=== PATIENT | male | born 1930 | race Caucasian/White ===

== ENCOUNTER → 2018-08-05 | Outpatient (CLI) | payer MEDICARE, BC ==
--- NOTE | 2018-08-05 11:50 | RAD ---
Left neck ultrasound, 08/05/2018: HISTORY: Neck swelling, lump The soft tissues of the left neck were carefully scanned. A couple of small normal-sized lymph nodes are seen. No mass, enlarged lymph nodes or abnormal fluid collection is evident. Clinical follow-up is suggested and if clinical concern persists, CT scanning may be useful for further evaluation Electronically signed by: Walt Denney MD (08/05/2018 11:47 AM) [facility]
== END | disposition home or self-care (01) ==
LOC: US 09:28
PROVIDERS: ATTEND Family Medicine
DX: R22.1 Localized swelling, mass and lump, neck (principal)
CPT/HCPCS: 76536

== ENCOUNTER → 2018-08-30 | Outpatient (CLI) | payer MEDICARE, BC ==
--- NOTE | 2018-08-30 09:33 | RAD ---
PQRS Compliance statement: One or more of the following individualized dose reduction techniques were utilized for this examination: 1. Automated exposure control. 2. Adjustment of the mA and/or kV according to patient size. 3. Use of iterative reconstruction technique. Indication:Left-sided neck mass and swelling. Severely dry throat for 3 years. TECHNIQUE: CT neck soft tissue without IV contrast with multiplanar reformats. COMPARISON:None FINDINGS: Limited exam due to lack of IV contrast. Noncontrast appearance through the orbits and brain are within normal limits. The nasopharynx, oropharynx and hypopharynx are within normal limits. The noncontrast appearance of the bilateral submandibular glands, parotid glands and thyroid is within normal limits. No enlarged deep cervical adenopathy. Moderate atherosclerotic plaque in the right carotid bulb. Surgical clips are seen in the left superficial neck soft tissue and carotid space. There is no abnormal soft tissue mass seen in the left neck. Mild emphysema in the visualized lung apices. Visualized paranasal sinuses and mastoid air cells are clear. No suspicious bony lesion. 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 Most likely a hemangioma in T1 vertebral body. IMPRESSION: Limited exam due to lack of IV contrast. No apparent neck mass seen. Postsurgical changes in the left carotid space and superficial neck soft tissue. Electronically signed by: Cuba Shen DO (08/30/2018 9:30 AM) [facility]
== END | disposition home or self-care (01) ==
LOC: CT 08:46
PROVIDERS: ATTEND Family Medicine
DX: I65.21 Occlusion and stenosis of right carotid artery (principal); M50.30 Other cervical disc degeneration, unspecified cervical region; J43.9 Emphysema, unspecified; I10 Essential (primary) hypertension; Z88.0 Allergy status to penicillin
CPT/HCPCS: 70490

== ENCOUNTER → 2019-03-16 | Outpatient (CLI) | payer MEDICARE, BC ==
--- NOTE | 2019-03-16 09:43 | RAD ---
EXAM: CT HEAD WITHOUT CONTRAST. HISTORY: Left vision loss. TECHNIQUE: Computed tomography of the head was performed without intravenous contrast. One or more of the following individualized dose reduction techniques were utilized for this examination: 1. Automated exposure control. 2. Adjustment of the mA and/or kV according to patient size. 3. Use of iterative reconstruction technique. COMPARISON: None. FINDINGS: There is no intracranial hemorrhage. Hypoattenuation within the periventricular white matter indicates mild chronic microangiopathic change. Prominence of the lateral ventricles and hemispheric sulci indicates moderate atrophy. The visualized paranasal sinuses appear clear. The orbits are unremarkable. The temporal bones are unremarkable. The calvarium reveals no suspicious lesions. IMPRESSION: 1. No acute intracranial findings. 1. 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 Electronically signed by: Karli Culver MD (03/16/2019 9:40 AM) [facility]
--- NOTE | 2019-03-16 10:53 | RAD ---
EXAM: CAROTID DOPPLER SONOGRAM. HISTORY: Vision changes. Left carotid endarterectomy. TECHNIQUE: Solomon scale and color Doppler sonographic evaluation of the neck with spectral waveform analysis was performed and static images are submitted for review. FINDINGS: RIGHT: The peak systolic velocity within the common carotid artery is 51 cm/sec. The peak systolic velocity within the internal carotid artery is 53 cm/sec and the end diastolic velocity within the internal carotid artery is 16 cm/sec. The ICA/CCA ratio is 0.8. Grayscale images demonstrate no grayscale stenosis. LEFT: The peak systolic velocity within the common carotid artery is 51 cm/sec. The peak systolic velocity within the internal carotid artery is 55 cm/sec and the end diastolic velocity within the internal carotid artery is 20 cm/sec. The ICA/CCA ratio is 0.7. Endarterectomy changes are noted on the left. Grayscale images demonstrate no grayscale stenosis. There is antegrade flow within both vertebral arteries. IMPRESSION: 1. No evidence of hemodynamically significant stenosis. PQRS Compliance Statement - Stenosis calculations for CT, MR and conventional angiography are based upon measurement of the distal ICA diameter in accordance with the NASCET methodology. Stenosis calculations for carotid ultrasound studies are derived from validated velocity criteria which are known to correlate with the NASCET methodology. Electronically signed by: Karli Culver MD (03/16/2019 10:50 AM) [facility]
== END | disposition home or self-care (01) ==
LOC: CT 08:53
PROVIDERS: ATTEND Specialist
DX: H53.132 Sudden visual loss, left eye (principal); G31.89 Other specified degenerative diseases of nervous system; Z98.890 Other specified postprocedural states
CPT/HCPCS: 70450; 93880